=== PATIENT | male | born 1975 | race Caucasian/White ===

== ENCOUNTER → 2021-06-03 10:28 | Outpatient (CLI) | payer OTHER, SELFPAY | PROVIDERS: Visit Provider Nurse Practitioner | DX: U07.1 COVID-19 (principal) | CPT/HCPCS: C9803; U0003; U0005 ==

== ENCOUNTER 2022-02-07 13:10 | Emergency (ER) | payer OTHER, SELFPAY ==
[2022-02-07 13:54] VITALS: BP 121/78; PULSE 90; RESP 17; TEMP 37.1; O2SAT 98; BMI 26.6
--- NOTE | 2022-02-07 14:23 | EXP.UTC ---
Discharge Plan Disposition Patient Disposition: Home, Self-Care Condition: Good Prescriptions Prescriptions: New mupirocin 2 % ointment 1 applic topical BID Qty: 15 0RF Rx Instructions: apply with q tip inside nostril cephalexin [cephalexin] 500 mg tablet 500 mg PO BID 7 Days Qty: 14 0RF Referrals Follow up/Referrals: Justin Iraheta MD [Primary Care Provider] - See instructions Clinical Impressions Clinical Impression: Abscess of nose Instructions Patient Instructions: Boil Discharge [facility] [place] General Stated complaint: Possible infection in LT nostril Mode of Arrival: Ambulatory Source of Information: Patient Limitations: No Limitations Time Seen by Provider: 02/07/22 14:26 Description of Symptoms (Recalled from Triage Doc. by RN): pt comes in for tender and sore spot on left side of nose. pt states that he noticed it on 02/03. pt states that he is unsure if its a pimple or ingrown hair. HEENT Symptoms (Recalled from RN notes): No Resp Symptoms (Recalled from RN notes): No Skin Symptoms (Recalled from RN notes): Yes MS Symptoms (Recalled from RN notes): No Functional Status (Recalled from RN notes): n/a History of Present Illness Provider Complaint: 46 yr old male presnets for a tender and sore spot on left side of nose. pt states that he noticed it on 02/03.pt states its has the side of his face swollen and painful Related Data Previous Rx's Medication Instructions Recorded cephalexin 500 mg tablet 500 mg PO BID 7 days #14 tabs 02/07/22 mupirocin 2 % topical ointment 1 applic topical BID #15 grams 02/07/22 Allergies Allergy/AdvReac Type Severity Reaction Status Date / Time No Known Drug Allergies Allergy Verified 02/07/22 13:58 Worker's Comp Is this a Worker's Comp case?: No [facility] Social History , [employer]ER) Smoking Status: Smoker, status unknown alcohol intake: never current occupational status: employed Travel in the last 8 weeks: None ROS Obtained: Yes All systems reviewed & no additional complaints except as documented Integumentary/Breasts Skin/Breast: Reports system reviewed and no additional complaints, except as documented and Reports furuncle Physical Exam General General appearance: alert and in no apparent distress Head Head exam: atraumatic Eye Eye exam: Present normal appearance Expanded ENT Exam Nose/Mouth Image: 1. white pimple area with redness 2. Respiratory Respiratory exam: Present normal lung sounds bilaterally Cardiovascular Cardiovascular exam: Present regular rate and normal rhythm Neurological Exam Neurological exam: Present alert and oriented X3 Skin Skin exam: Present other Medical Decision Making Medical Records Medical records reviewed: Yes I reviewed the patient's medical records. Kip Inquiry Pt receiving controlled substance: No Vital Signs: 02/07/22 13:54 Temperature 98.8 F Temperature Source Oral Pulse Rate [Left] 90 Respiratory Rate 17 Blood Pressure [Right Arm] 121/78 Blood Pressure Mean [Right Arm] 92 02 Sat by Pulse Oximetry 98
[2022-02-07 14:43] VITALS: BP 121/78; PULSE 90; RESP 17; TEMP 37.1
== END 2022-02-07 14:44 | disposition home or self-care (01) ==
PROVIDERS: Emergency Provider Nurse Practitioner Family; PCP Family Medicine
DX: J34.0 Abscess, furuncle and carbuncle of nose (principal)
CPT/HCPCS: 99212; G0463; J0696

== ENCOUNTER → 2022-10-02 09:04 | Outpatient (CLI) | payer OTHER, SELFPAY ==
[2022-10-02 10:41] LABS: Alanine Aminotransferase 19 U/L (12-78); Albumin Level 3.8 g/dl (3.5-5.0); Alkaline Phosphatase 91 U/L (38-126); Anion Gap 15.2 mEq/L (5-15); Aspartate Amino Transferase 18 U/L (17-59); Bilirubin,Total 0.4 mg/dl (0.2-1.3); Blood Urea Nitrogen 11 mg/dl (9-20); Calcium 8.5 mg/dl (8.4-10.2); Carbon Dioxide 23 mmol/L (22.0-30.0); Chloride 100 mmol/L (98-107); Chol/HDL Ratio 4.1 (1-3.5); Cholesterol 153 mg/dl (140-200); Estimated Glomerular Filt Rate 232 ml/min (>60); GFR (African American) 280 ML/MIN (>60); Globulin 1.9 g/dL (1.3-3.2); Glucose 285 mg/dl (74-100); HDL Cholesterol 37 mg/dl (40-60); Potassium 4.2 mmoL/L (3.5-5.1); Sodium 134 mmol/L (136-145); Total Protein,Serum 5.7 g/dl (6.3-8.2); Triglycerides 202 mg/dl (30-150); VLDL Cholesterol 40 mg/dL (0-40)
[2022-10-02 10:52] LABS: Direct LDL Cholesterol 98.83 mg/dL (100-129)
[2022-10-02 10:58] LABS: Hemoglobin A1C 13.5 % (4.0-6.0)
[2022-10-02 12:47] LABS: Creatinine,Urine Random 45 mg/dL (Not Estab.); Microalbumin < 6.000 mg/L (0-16.7)
== END ==
PROVIDERS: PCP Family Medicine; Visit Provider Family Medicine
DX: E11.9 Type 2 diabetes mellitus without complications (principal); E78.2 Mixed hyperlipidemia
CPT/HCPCS: 36415; 80053; 80061; 82043; 82570; 83036; 84443

== ENCOUNTER → 2023-02-17 23:23 | Outpatient (CLI) | payer BC, SELFPAY ==
[2023-02-17 18:02] LABS: Basophils # 0.1 K/mm3 (0-0.2); Basophils % 0.4 % (0.1-2.0); Eosinophils # 0.2 K/mm3 (0.0-0.4); Eosinophils % 1.4 % (0.1-12.0); Hematocrit 56.1 % (42.0-52.0); Hemoglobin 17.9 g/dL (14.1-18.0); Lymphocytes % 18.2 % (10-50); Mean Corpuscular HGB Conc 31.9 g/dL (31.8-35.4); Mean Corpuscular Hemoglobin 28.1 pg (27.0-31.2); Mean Corpuscular Volume 87.9 fl (80-94); Mean Platelet Volume 9.2 fl (7.4-10.4); Monocytes # 0.8 K/mm3 (0.1-1.0); Monocytes % 7.5 % (1.7-9.3); Neutrophils % 72.5 % (37.0-80.0); Platelet Count 285 K/mm3 (142-424); Red Blood Count 6.38 M/mm3 (4.60-6.20); Red Cell Distribution Width 13.6 % (11.5-17.5)
[2023-02-17 18:09] LABS: Alanine Aminotransferase 20 U/L (12-78); Albumin Level 4.5 g/dl (3.5-5.0); Albumin/Globulin Ratio 1.7 (1.1-1.8); Alkaline Phosphatase 62 U/L (38-126); Anion Gap 15.8 mEq/L (5-15); Aspartate Amino Transferase 29 U/L (17-59); Bilirubin,Total 0.4 mg/dl (0.2-1.3); Blood Urea Nitrogen 15 mg/dl (9-20); Calcium 9.4 mg/dl (8.4-10.2); Carbon Dioxide 22 mmol/L (22.0-30.0); Chloride 104 mmol/L (98-107); Chol/HDL Ratio 5.2 (1-3.5); Cholesterol 178 mg/dl (140-200); Estimated Glomerular Filt Rate 179 ml/min (>60); GFR (African American) 217 ML/MIN (>60); Globulin 2.6 g/dL (1.3-3.2); Glucose 135 mg/dl (74-100); HDL Cholesterol 34 mg/dl (40-60); Potassium 4.8 mmoL/L (3.5-5.1); Sodium 137 mmol/L (136-145); Total Protein,Serum 7.1 g/dl (6.3-8.2); Triglycerides 132 mg/dl (30-150); VLDL Cholesterol 26 mg/dL (0-40)
[2023-02-17 18:20] LABS: Direct LDL Cholesterol 119.01 mg/dL (100-129)
[2023-02-17 18:26] LABS: 25-OH Vitamin D, Total 34.7 ng/mL (30-100)
[2023-02-17 18:40] LABS: Prostate Specific Ag Screen 0.8 ng/ml (0.0-4.0); Thyroid Stimulating Hormone 1.07 uIU/mL (0.465-4.68)
== END ==
PROVIDERS: PCP Family Medicine; Visit Provider Student in an Organized Health Care Education/Training Program
DX: E11.9 Type 2 diabetes mellitus without complications (principal); Z79.84 Long term (current) use of oral hypoglycemic drugs; N52.9 Male erectile dysfunction, unspecified; Z12.5 Encounter for screening for malignant neoplasm of prostate; Z79.899 Other long term (current) drug therapy
CPT/HCPCS: 80053; 80061; 82306; 83036; 84443; 85025; G0103

== ENCOUNTER 2024-02-27 16:42 | Emergency (ER) | payer BC, SELFPAY ==
[2024-02-27 16:50] VITALS: BP 128/73; PULSE 100; RESP 16; TEMP 36.7; O2SAT 99; BMI 24.4
--- NOTE | 2024-02-27 16:53 | EXP.UTC ---
Discharge Plan Disposition Patient Disposition: Home, Self-Care Condition: Good Prescriptions Prescriptions: New azithromycin [Zithromax Z-Jose] 250 mg tablet See Rx Instructions .ROUTE .COMPLEX 5 Days Qty: 6 0RF Rx Instructions: For 250 mg dose pack: take 500 mg today (day 1), then 250 mg for 4 days (days 2-5) benzonatate 100 mg capsule 100 mg PO TID PRN (Reason: cough) Qty: 30 0RF guaifenesin [Mucinex] 600 mg tablet extended release 12hr 1,200 mg PO BID PRN (Reason: cough) Qty: 20 0RF No Action metformin 500 mg tablet extended release 24 hr 500 mg PO DAILY atorvastatin 20 mg tablet 20 mg PO DAILY Qty: 90 3RF lisinopril 2.5 mg tablet 2.5 mg PO DAILY Qty: 90 3RF Referrals Follow up/Referrals: Justin Iraheta MD [Primary Care Provider] - See instructions Activity Restrictions/Add. Instructions Additional Instructions/Restrictions: *Monitor Temp, Over the counter Motrin or Tylenol as directed/as needed Tylenol every 4 hours and Motrin every 6 hours (as long as your family doctor has told you that you can take it) for fever or pain. and straight to ER if unable to lower temp less than 101.0 after medication given *Warm salt water gargles may help to soothe the throat *Throat Lozenges? *Warm fluids like tea with honey may help to soothe the throat? *Sleep elevated *Humidifier/Vaporizer Start antibiotic today. Be sure to complete entire prescription even if feeling better Monitor temp. Tylenol every 4 hours as needed and / or ibuprofen every 6 hours as needed ( As long as your primary care physician has told you that it ok to take both. For fever/aches/pains ER if no less than 101 despite Tylenol or Motrin Mucinex during the day for your cough and cough suppressant only at night. Be sure to drink lots of water. *Tessalon Perles will not cause drowsiness but use at bedtime to help stop cough so that you may get some rest. Follow up IMMEDIATELY for new or worsening of symptoms OR no noticeable improvement over the next 48-72 hours. 911 immediately for any life threatening symptoms such as chest pain or difficulty breathing * Your throat swab was sent for culture. Those results are typically sent to your primary care. Be sure to follow up in 2-3 days with your family doctor/primary care physician if no improvement so they can review those result and treat if necessary. If you don?t have a primary care doctor, I recommend you get one but in the mean time, you will have to return to a walk in clinic Follow up IMMEDIATELY for new or worsening symptoms or no Noticeable improvement over the next 48-72 hours. 911 for difficulty breathing or swallowing Clinical Impressions Clinical Impression: Sinusitis, Bronchitis Instructions Patient Instructions: DI for Sinusitis, Benzonatate, Azithromycin, Acute Bronchitis Print Language Print Language: Argentine Discharge ED Provider: Kristine Payton [facility] [place] HPI General Stated complaint: cough Mode of Arrival: Ambulatory Source of Information: Patient Limitations: No Limitations Time Seen by Provider: 02/27/24 16:53 Description of Symptoms (Recalled from Triage Doc. by RN): Patient reports cough and runny nose for 2 weeks. HEENT Symptoms (Recalled from RN notes): Yes Resp Symptoms (Recalled from RN notes): No Skin Symptoms (Recalled from RN notes): No MS Symptoms (Recalled from RN notes): No Functional Status (Recalled from RN notes): wnl History of Present Illness Provider Complaint: Patient is an everyday smoker states that he has been having sinus congestion, pressure and drainage in the back of his throat, scratchy throat and cough for about 2 weeks States seems to feel worse at night and at times coughing up some thick mucous States today still having a nagging cough and sinus congestion so he came in to get checked Related Data Home Medications ?Medication ?Instructions ?Recorded ?Confirmed metformin 500 mg tablet,extended 500 mg PO DAILY 02/17/23 04/06/23 release 24 hr Previous Rx's ?Medication ?Instructions ?Recorded atorvastatin 20 mg tablet 20 mg PO DAILY #90 tabs 04/21/23 lisinopril 2.5 mg tablet 2.5 mg PO DAILY #90 tabs 04/21/23 azithromycin 250 mg tablet See Rx Instructions PO .COMPLEX 5 02/27/24 (Zithromax Z-Jose) days #6 tabs benzonatate 100 mg capsule 100 mg PO TID PRN cough #30 caps 02/27/24 guaifenesin 600 mg tablet, 1,200 mg (2 x 600 mg) PO BID PRN 02/27/24 extended release 12 hr (Mucinex) cough #20 tabs Allergies Allergy/AdvReac Type Severity Reaction Status Date / Time No Known Drug Allergies Allergy Verified 04/06/23 13:28 Worker's Comp Is this a Worker's Comp case?: No [facility] Disclaimer: The information contained in this section may have been updated after the patient was seen, as this information can be updated by other users. Medical History Type 2 diabetes mellitus Surgical History No significant past surgical history Family History (Reviewed 04/06/23 @ :28 by Marianne Yancey) Other Adopted Social History Smoking Status: Current every day smoker tobacco type: cigarettes alcohol intake: never current occupational status: employed Travel in the last 8 weeks: None ROS Obtained: Yes All systems reviewed & no additional complaints except as documented and Yes Systems reviewed as appropriate & no additional complaints except as documented Constitutional Constitutional: Reports system reviewed and no additional complaints, except as documented and Reports as per HPI ENT Ears, Nose, Mouth, and Throat: Reports system reviewed and no additional complaints, except as documented, Reports as per HPI, Reports sinus pain, Reports sinus pressure and Reports sore throat Cardiovascular Cardiovascular: Reports system reviewed and no additional complaints, except as documented and Reports as per HPI Respiratory Respiratory: Reports system reviewed and no additional complaints, except as documented, Reports as per HPI, Denies shortness of breath, Reports chest congestion, Reports cough and Reports pain with cough Gastrointestinal Gastrointestingal: Reports system reviewed and no additional complaints, except as documented and as per HPI Physical Exam General General appearance: alert and in no apparent distress ENT ENT exam: Present mucous membranes moist Expanded ENT Exam Nose exam: Present sinus tenderness Throat exam: Present tonsillar erythema and other (Pnd noted) Chest Chest inspection: Present normal inspection and symmetric chest wall rise; Absent tenderness Respiratory Respiratory exam: Present normal lung sounds bilaterally; Absent respiratory distress or wheezes Cardiovascular Cardiovascular exam: Present regular rate, normal rhythm and tachycardia Abdominal Exam Abdominal exam: Present soft and normal bowel sounds; Absent distention or tenderness Neurological Exam Neurological exam: Present alert, oriented X3 and normal gait Medical Decision Making Medical Records Screening: Per USPSTF and CDC recommendations, given the prevalence of disease in our region, it is our hospital?s policy to screen for HIV and viral Hepatitis for all patients aged 18 and over and those with ongoing risk factors. Kip Inquiry Pt receiving controlled substance: No Kip was queried for this patient: No Vital Signs: 02/27/24 16:50 Temperature 98.1 F Temperature Source Oral Pulse Rate [Radial] 100 H Respiratory Rate 16 Blood Pressure [Right Arm] 128/73 Blood Pressure Mean [Right Arm] 91 Blood Pressure Source [Right Arm] Automatic Cuff Blood Pressure Position [Right Arm] Sitting 02 Sat by Pulse Oximetry 99 Oxygen Delivery Method Room Air Lab Data Lab results reviewed: Yes I reviewed the patient's lab results.
[2024-02-27 17:00] LABS: UTC Strep Screen (Rapid) Negative (Negative)
[2024-02-27 17:08] VITALS: BP 128/73; PULSE 100; RESP 16; TEMP 36.7; O2SAT 99
== END 2024-02-27 17:09 | disposition home or self-care (01) ==
PROVIDERS: Emergency Provider Nurse Practitioner; PCP Family Medicine
DX: J01.90 Acute sinusitis, unspecified (principal); J40 Bronchitis, not specified as acute or chronic
CPT/HCPCS: 87880; 99213; G0381

== ENCOUNTER 2025-04-21 13:41 | Emergency (ER) | payer BC, SELFPAY ==
[2025-04-21 13:55] VITALS: BP 114/89; PULSE 87; RESP 20; TEMP 36.8; O2SAT 99; BMI 24.8
--- OUTSIDE RECORDS SUMMARY | 2025-04-21 14:01 | XMS_ITS | Clinical Summary ---
Author Organization [facility] Address [address] [place] [address] Phone [email or web address] Care Team Providers Care Cooking Teacher Name Role Phone Provider, No Primary Care Provider Unavailabl e Allergies No known active allergies Medications metFORMIN XR (GLUCOPHAGE-XR) 500 MG 24 hr tablet Take 1,000 mg by mouth 1 (one) time each day. 09/28/2022 Active Active Problems No known active problems Social History Tobacco Use Types Packs/Day Years Used Date Smoking Tobacco: Never Assessed Stress Answer Date Recorded Stress in your Life Not on file 03/29/2024 Dealing with Stress 3 03/29/2024 Sex and Gender Information Value Date Recorded Sex Assigned at Not on file Legal Sex Male 1:36 PM CDT Gender Identity Not on file Sexual Orientation Not on file Last Filed Vital Signs Vital Sign Reading Time Taken Comments Blood Pressure 111/78 09/24/2022 5:00 PM EDT Pulse 90 09/24/2022 5:00 PM EDT Temperature 36.2 C (97.1 F) 09/24/2022 5:00 PM EDT Respiratory Rate 18 09/24/2022 5:00 PM EDT Oxygen Saturation 96% 09/24/2022 5:00 PM EDT Inhaled Oxygen Concentration - - Weight 83.2 kg (183 lb 6.4 oz) 09/24/2022 5:00 PM EDT Height 180.3 cm (5' 11 ) 09/24/2022 5:00 PM EDT Body Mass Index 25.58 09/24/2022 5:00 PM EDT Plan of Treatment Health Maintenance Due Date Last Done Comments CT Colonography 1976 Colonoscopy 1976 Colorectal Cancer Screening Combo 1976 DNA Cologuard 1976 Dental Cleaning/Exam 1976 FIT or FOBT Test 1976 HIV Screening 1976 Hepatitis C Screening 1976 Sigmoidoscopy 1976 Hep B Infection Screening - Triple Screen 1994 Hepatitis B Immunization (1 of 3 - 19+ 3-dose series) 08/02/1995 Tetanus Diphtheria and Pertussis Immunization (1 - Tdap) 08/02/1995 Annual Preventive Exam 09/25/2023 09/24/2022 Covid-19 Immunization (3 - 2024- season) 2025 03/28/2021, 07/30/2020 Influenza Immunization (#1) 2025 HIB Immunization Aged Out No longer e ligible based on patient's age to complete this topic HPV Immunization Aged Out No longer e ligible based on patient's age to complete this topic Hepatitis A Immunization Aged Out No longer eligible based on patient's age to complete this topic Pneumococcal Immunization Aged Out No longer eligible based on patient's age to complete this topic Polio Immunization Aged Out No longer eligible based on patient's age to complete this topic Insurance [employer] 5 Care Teams Cooking Teacher Relationship Specialty Start Date End Date Provider, [place] [id number] PCP - General Monkey Keeper 09/24/22
--- OUTSIDE RECORDS SUMMARY | 2025-04-21 14:01 | XMS_ITS | Patient Health Record ---
[facility] Organization [facility] Address [address] [place] [id number] Care Team Providers Care Therapist Respiratory Name Role Phone Justin Iraheta Primary Care Provider Allergies Allergen (clinical drug ingredient) Drug/Non Drug Allergy documented on EMR Reaction Allergy Type Onset Date Status Information temporarily unavailable Penicillin Unknown Drug Allergy Active Medications Medication SIG (Take, Route, Frequency, Duration) Notes Start Date End Date Status metFORMIN HCl ER 500 MG 2 tab(s) orally once a day; Duration: 90 days Active Farxiga 10 MG 1 tab(s) orally once a day; Duration: 30 day(s) 09/30/2022 Unknown Immunizations Vaccine Route Administration Date Status Comme nts COVID 19 Vida Unknown 07/30/2020 Administered COVID 19 Vida Unknown 03/28/2021 Administered Problems Problem Type SNOMED Code ICD Code Onset Dates Problem Status W/U Status Risk Notes Problem Information temporarily unavailable Type 2 diabetes mellitus without complications (E11.9) Active confirmed Problem Information temporarily unavailable Hypertriglyceridemia (E78.1) Active confirmed Problem Information temporarily unavailable Mixed hyperlipidemia (E78.2) Active confirmed Problem Information temporarily unavailable shelter current use of insulin (Z79.4) Active confirmed Problem Information temporarily unavailable Erectile dysfunction, unspecified erectile dysfunction type (N52.9) Active confirmed Problem Information temporarily unavailable Type 2 diabetes mellitus without complication, without long-term current use of insulin (E11.9) Active confirmed Plan Of Treatment No Information Insurance Providers Payer Name Payer Address Payer Phone Subscriber Number Group Number Insured Name Patient Relationship to Insured Coverage Start Date Coverage End Date [employer] [place] [id number] [place], [place] [phone] [id number] Jorge Alberto Plummer Self - patient is the insured [facility] PMB [id number] [facility]. [facility] [place] [address] [id number] Jorge Alberto Plummer Self - patient is the insured Medical (General) History Medical History History ICD Code Type 2 Diabetes Hyperlipidemia Hypertriglyceridemia Surgical History Surgery Date(Month/Year) [place] Teeth Extractions 2001 Hospitalization History Reason Date(Month/Year) Groin & Leg Pains- [facility] ER 06/10/2012 Sciatic Pain- [facility] 11/21/2018
[2025-04-21 14:02] VITALS: BP 122/78; PULSE 86; O2SAT 96
[2025-04-21 14:05] LABS: POC Glucose,Bedside 309 gm/dL (70-110)
--- NOTE | 2025-04-21 14:14 | XR_ITS ---
PROCEDURE INFORMATION: Exam: XR Cervical Spine Exam date and time: 04/21/2025 2:36 PM Age: 49 years old Clinical indication: Neck pain TECHNIQUE: Imaging protocol: Radiologic exam of the cervical spine. Views: 2 or 3 views. COMPARISON: CR XR CHEST 2V 04/21/2025 2:34 PM FINDINGS: Bones/joints: There is good visualization of C1 through the top of T1 and lateral projection. Slight reversal of the normal lordotic curvature of the cervical vertebral bodies centered at the C5-C6 level. Moderately advanced degenerative changes are present C5-C6 and C6-C7. Anterior bone spurring and osteophyte formation is present at C5-C6 and C6-C7. Mild posterior bone spurring is present at C5-C6 and C6-C7. Minimal anterior bony spurring is present at C4-C5. Mild degenerative endplate changes are present at C7-T1. No acute fracture. No suspicious bone lesion. Facets align normally. Spinous processes are intact. AP view demonstrates advanced degenerative facet arthropathy of the right and left at C3-C4 and C4-C5 levels. Bony spurring is present to the left at C3-C4. Multilevel uncovertebral hypertrophy is present. Odontoid view is unremarkable. Soft tissues: No prevertebral soft tissue swelling. Airway: Hypopharynx and upper trachea appear patent. Trachea is normally positioned. Lungs: Lung apices are clear. IMPRESSION: No acute findings. No acute fracture. Reversal of the normal lordotic curvature centered at C5-C6 may be secondary to muscle spasm or arthritic change. Multilevel advanced arthritic changes are present within the cervical spine as described. No prevertebral soft tissue swelling.
--- NOTE | 2025-04-21 14:14 | XR_ITS ---
PROCEDURE INFORMATION: Exam: XR Chest Exam date and time: 04/21/2025 2:34 PM Age: 49 years old Clinical indication: Pain; Other: Cp TECHNIQUE: Imaging protocol: Radiologic exam of the chest. Views: 2 views. COMPARISON: No relevant prior studies available. FINDINGS: Lungs: No focal consolidation or other acute appearing pulmonary opacity. No CHF. Pleural spaces: No significant pleural effusion. No pneumothorax. Heart/Mediastinum: The heart size is normal. The mediastinal contours are smooth. Bones/joints: Mild degenerative changes are present within the spine. No acute osseous abnormality. IMPRESSION: No acute findings within the chest.
--- NOTE | 2025-04-21 14:14 | XR_ITS ---
PROCEDURE INFORMATION: Exam: XR Right Shoulder Exam date and time: 04/21/2025 2:40 PM Age: 49 years old Clinical indication: Pain; Shoulder; Right TECHNIQUE: Imaging protocol: Radiologic exam of the right shoulder. Views: 2 or more views. COMPARISON: CR XR CERVICAL SPINE 2V 04/21/2025 2:36 PM FINDINGS: Bones/joints: Osseous mineralization within normal limits. No acute fracture or malalignment. Glenohumeral joint is normally aligned. Mild arthritic changes present at the glenohumeral joint. Minimal bony spurring along the margin of the glenoid. AC joint is normally aligned. Mild superficial and undersurface spurring is present at the AC joint. No suspicious bone lesion. Lungs: Small 4 mm dense nodule within the right upper lobe. Findings more compatible with a small calcified granuloma. No airspace consolidation in within the visualized portion of the right lung. No apical pneumothorax on the right. Mild degenerative changes are present within the visualized portion of the spine. Soft tissues: Unremarkable. IMPRESSION: No acute findings. No acute fracture or malalignment. Mild arthritic changes present at the glenohumeral joint and AC joint.
[2025-04-21] MEDS: CYCLOBENZAPRINE 10MG TABLET 10 MG PO (14:19)
[2025-04-21 14:30] VITALS: BP 115/75; PULSE 89; O2SAT 97
--- NOTE | 2025-04-21 14:33 | ECG_ITS ---
APPROVED REPORT Exam: Resting ECG HR:88 bpm ECG Measurements Heart Rate 88 AXES RI 160 P 52 QRSd 91 QRS 64 QT 330 T 34 QTc 375 Conclusion SINUS RHYTHM NORMAL ECG UNCONFIRMED REPORT Electronically signed by : SONI AGUIRRE, 04/21/2025 23:02:02
--- NOTE | 2025-04-21 14:40 | HMH.EDGENADL ---
Discharge Plan Disposition Patient Disposition: Home, Self-Care Prescriptions Prescriptions: New meloxicam 15 mg tablet 15 mg PO DAILY Qty: 14 0RF cyclobenzaprine 10 mg tablet 10 mg PO HS Qty: 30 0RF No Action metformin 500 mg tablet extended release 24 hr 500 mg PO DAILY atorvastatin 20 mg tablet 20 mg PO DAILY Qty: 90 3RF lisinopril 2.5 mg tablet 2.5 mg PO DAILY Qty: 90 3RF azithromycin [Zithromax Z-Jose] 250 mg tablet See Rx Instructions .ROUTE .COMPLEX 5 Days Qty: 6 0RF Rx Instructions: For 250 mg dose pack: take 500 mg today (day 1), then 250 mg for 4 days (days 2-5) benzonatate 100 mg capsule 100 mg PO TID PRN (Reason: cough) Qty: 30 0RF guaifenesin [Mucinex] 600 mg tablet extended release 12hr 1,200 mg PO BID PRN (Reason: cough) Qty: 20 0RF Referrals Follow up/Referrals: Justin Iraheta MD [Primary Care Provider, Medical] - See instructions Activity Restrictions/Add. Instructions Additional Instructions/Restrictions: Follow-up with your regular doctor for discussion of PT for right shoulder, PT for neck, and diabetes control. Take medications as prescribed. Can discuss further neuropathic pain medications with pcp as well Clinical Impressions Clinical Impression: Tendinopathy of right rotator cuff, Adhesive capsulitis, Diabetic neuropathy, Cervical radiculopathy Instructions Patient Instructions: Diabetic Neuropathy, DI for Frozen Shoulder, DI for Cervical Radiculopathy Print Language Print Language: [place] Discharge ED Provider: Chuck Calzada Adult HPI General Chief complaint: PAIN Stated complaint: right shoulder, hand pain Time Seen by Provider: 04/21/25 14:08 Mode of Arrival: Ambulatory Source of Information: Patient and Spouse Description of Symptoms (Recalled from ER Triage Doc. by RN): tony presents to ED for right hand paina s well as numbness and tingling. patient stated he woke up 3 hours ago and thats when he noticed it. the patient also states that his hands ache all the time but that this is different . tony states he is diabetic, glucose 309 in triage. History of Present Illness HPI narrative: Patient has a long history of neck pain and shoulder pain. both of which is atraumatic. states that he has had left hand pain in addition to his right hand pain upon waking today. took 800 mg ibuprofen, which helped with his left hand pain, but he has not felt significantly better with his right hand to this point. denies chest pain, denies shortness of breath. Related Data Home Medications ?Medication ?Instructions ?Recorded ?Confirmed metformin 500 mg tablet,extended 500 mg PO DAILY 02/17/23 04/06/23 release 24 hr Previous Rx's ?Medication ?Instructions ?Recorded atorvastatin 20 mg tablet 20 mg PO DAILY #90 tabs 04/21/23 lisinopril 2.5 mg tablet 2.5 mg PO DAILY #90 tabs 04/21/23 azithromycin 250 mg tablet See Rx Instructions PO .COMPLEX 5 02/27/24 (Zithromax Z-Jose) days #6 tabs benzonatate 100 mg capsule 100 mg PO TID PRN cough #30 caps 02/27/24 guaifenesin 600 mg tablet, 1,200 mg (2 x 600 mg) PO BID PRN 02/27/24 extended release 12 hr (Mucinex) cough #20 tabs cyclobenzaprine 10 mg tablet 10 mg PO HS #30 tabs 04/21/25 meloxicam 15 mg tablet 15 mg PO DAILY #14 tabs 04/21/25 Allergies Allergy/AdvReac Type Severity Reaction Status Date / Time No Known Drug Allergies Allergy Verified 04/06/23 13:28 [facility] Disclaimer: The information contained in this section may have been updated after the patient was seen, as this information can be updated by other users. Medical History Type 2 diabetes mellitus Surgical History No significant past surgical history Family History Other Adopted Social History Smoking Status: Current every day smoker tobacco type: cigarettes alcohol intake: never current occupational status: employed Travel in the last 8 weeks?: None Have you lived/traveled outside [place] in past 30 days?: No Contact w/someone who lives/traveled outside [place] past 30 days?: No Exposure to someone with infectious disease in past 14 days?: No Do you have a fever (greater than 100.4 F or 38 C)?: No Have you tested positive for COVID-19?: No Exposed to someone with COVID-19 in past 14 days?: No Do you have a sore throat?: No Do you have a cough?: No Do you have any weakness?: No Do you have any diarrhea?: No Are you experiencing any unusual bleeding?: No Do you have any muscle aches/pain?: No Do you have any abdominal pain?: No Are you experiencing loss of taste or smell?: No ROS Obtained: Yes All systems reviewed & no additional complaints except as documented Physical Exam General General appearance: alert and in no apparent distress Head Head exam: atraumatic and normocephalic Eye Eye exam: Present normal appearance ENT ENT exam: Present normal exam Neck Neck exam: Present normal inspection and other (mildly limited rom in axial rotation. spurlings negative ) Chest Chest inspection: Present normal inspection Respiratory Respiratory exam: Present other (normal effort on room air ) Cardiovascular Cardiovascular exam: Present regular rate Abdominal Exam Abdominal exam: Present soft Extremities Exam Extremities exam: Present normal inspection, clubbing (clubbing of fingers. no deformity of bilateral upper extremities ) and other (positive speeds test, painful empty can, no significant weakness. 160 degress abduction, flexion in right shoulder compared to 180 in right. 5/5 strength put painful abduction and external rotation and flexion in right compared to left) Neurological Exam Neurological exam: Present alert and other (no sensory or motor deficit in bilateral upper extremities ) Psychiatric Psychiatric exam: Present normal affect Skin Skin exam: Present warm Medical Decision Making Medical Records Medical records reviewed: Yes I reviewed the patient's medical records. Screening: Per USPSTF and CDC recommendations, given the prevalence of disease in our region, it is our hospital?s policy to screen for HIV and viral Hepatitis for all patients aged 18 and over and those with ongoing risk factors. Kip Inquiry Pt receiving controlled substance: No Vital Signs: 04/21/25 13:55 04/21/25 14:02 04/21/25 14:30 Temperature 98.2 F Temperature Source Oral Pulse Rate 86 89 Pulse Rate [Right Radial] 87 Respiratory Rate 20 Blood Pressure 122/78 115/75 Blood Pressure [Right Arm] 114/89 Blood Pressure Mean [Right Arm] 97 Blood Pressure Source [Right Arm] Automatic Cuff Blood Pressure Position Blood Pressure Position [Right Arm] Sitting 02 Sat by Pulse Oximetry 99 96 97 Oxygen Delivery Method Room Air Room Air Room Air 04/21/25 15:00 04/21/25 15:38 Temperature 97.9 F Temperature Source Oral Pulse Rate 84 84 Pulse Rate [Right Radial] Respiratory Rate 16 Blood Pressure 135/89 112/89 Blood Pressure [Right Arm] Blood Pressure Mean [Right Arm] Blood Pressure Source [Right Arm] Blood Pressure Position Sitting Blood Pressure Position [Right Arm] 02 Sat by Pulse Oximetry 98 Oxygen Delivery Method Room Air Lab Data Lab results reviewed: Yes I reviewed the patient's lab results. Lab Results 04/21/25 13:55: POC Glucose 309 H* Orders (Tests/Meds): ED MEDICATIONS Discontinued Medications Generic Name Dose Route Start Last Admin Trade Name Freq PRN Reason Stop Dose Admin Cyclobenzaprine HCl 10 mg 04/21/25 14:15 04/21/25 14:19 Cyclobenzaprine 10mg Tablet PO 04/21/25 14:16 10 mg ONCE ONE Administration ORDERS Category Date Time Status Cervical spine XR 2 views [XR cervical spine 2V] Stat Exams 04/21/25 14:14 Completed Shoulder XR right miminum 2 views [XR shoulder RT min Exams 04/21/25 14:14 Completed 2V] Stat XR chest 2V Stat Exams 04/21/25 14:14 Completed POC Glucose,Bedside Routine Lab 04/21/25 13:55 Completed Medical Decision Narrative: Patient is a 49 yo male with pmhx diabetes and neck pain. he has physical exam findings consistent with rotator cuff tendinopathy without significant tear with slight limitation in rom of rights [place] cmopared to left. given his hx of diabetes, he is at risk for adhesive capuslitis. while spurlings was negative, his shooting pain is concsitent with cervicla radiculopathy as well, particularly with his chronic neck pain. additional consideration includes diabetic neuropathy. his cervical spine, shoulder, and cxr were negative for acute fracture or dislocation. his cspine x-ray did show cervical straightening suggestive of spasm. he did have improvement with flexeril. ecg was without significant st abnormatilites and remained in nsr. with this and particularly with his sharp and shooting description of the bernardino that is worsening with movement, very low risk for cardiac etiology. recommenddd fu with pcp to discuss pt for neck and shoulder in addition to discussion of other neuropathic pain medications given his history of uncontrolled diabetes and diabetic neuropathy. return precuations for weakness and worsening chest pain or change in character of pain Critical Care Critical Care Time Critical Care Time: No
[2025-04-21 15:00] VITALS: BP 135/89; PULSE 84; O2SAT 98
[2025-04-21 15:38] VITALS: BP 112/89; PULSE 84; RESP 16; TEMP 36.6
== END 2025-04-21 15:40 | disposition home or self-care (01) ==
PROVIDERS: Emergency Provider Student in an Organized Health Care Education/Training Program; PCP Family Medicine
DX: M75.01 Adhesive capsulitis of right shoulder (principal); M54.12 Radiculopathy, cervical region; E11.40 Type 2 diabetes mellitus with diabetic neuropathy, unspecified; F17.210 Nicotine dependence, cigarettes, uncomplicated; Z79.84 Long term (current) use of oral hypoglycemic drugs; Z79.899 Other long term (current) drug therapy
CPT/HCPCS: 71046; 72040; 73030; 82962; 93005; 99284